=== PATIENT | male | born 1935 | race Caucasian/White ===

== ENCOUNTER → 2017-05-15 | Outpatient (CLI) | payer MEDICARE, BC ==
[~2017-05-15] MED LIST: AMLO2.5T2 PO; ASPI-664 PO; LISI20TA11 PO; SIMV5TAB50 PO; TAMS-14 PO
--- NOTE | 2017-05-15 16:57 | RADRPT ---
PROCEDURE: CT Chest. CLINICAL INDICATION: Dyspnea and shortness of breath. Left pulmonary nodule TECHNIQUE: CT scan of the chest without contrast was performed on the [employer] volumetric [address] [facility] without contrast. Coronal and sagittal reformatted images were obtained from the axial source images. The CTDI vol is 10.97 mGy and the DLP is 479.45 mGy-cm. COMPARISON: CT pulmonary angiogram from 05/11/2015 FINDINGS: The lungs are clear. No focal opacification, effusion, pneumothorax, edema, or nodules are seen. T here is no acute infiltrate. The mediastinum and hilum are unremarkable without evidence for mass or lymphadenopathy. Coronary vascular calcifications are seen. The ascending aorta is again noted to be enlarged measuring approximately 4.1 x 4 cm in size and has not changed significantly. The dista l aortic arch is also enlarged measuring 3.4 cm in size and is stable. Faster calcifications of the aorta are again noted. The heart size is normal without evidence for pericardial thickening or eff usion. The axillary regions, subpectoral regions, and supraclavicular regions are all unremarkable. Imaging obtained through the upper abdomen reveals no acute abnormality. 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 No osteolytic or osteoblastic lesion is detected. IMPRESSION: 1. 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 2. Otherwise, no CT evidence for acute pathology in the chest. RPTAT: [facility] Physician Filippo Date Time Electronically viewed and signed by Physician Filippo on 05/15/2017 16:57 /
== END | disposition home or self-care (01) ==
LOC: C/S 09:57
PROVIDERS: ATTEND Internal Medicine
DX: R91.1 Solitary pulmonary nodule (principal); I71.2 Thoracic aortic aneurysm, without rupture
CPT/HCPCS: 71250